=== PATIENT | male | born 1985 | race African-American/Black ===

== ENCOUNTER 2016-08-03 21:50 | Emergency (ER) | payer OTHER ==
[~2016-08-03] VITALS: Ht 193 cm; Wt 81.7 kg
[2016-08-03 23:45] VITALS: BP 110/70
== END 2016-08-03 23:49 | disposition home or self-care (01) ==
LOC: ER 21:50
DX: H61.23 Impacted cerumen, bilateral (principal)

== ENCOUNTER 2016-12-14 15:15 | Emergency (ER) | payer OTHER ==
[~2016-12-14] VITALS: Ht 193 cm; Wt 81.7 kg
[2016-12-14 15:16] VITALS: BP 114/67
[2016-12-14] MEDS ORDERED: NORCO 5-325 TA1 EACH PO (15:38)
[2016-12-14] MEDS ORDERED: NAPROSYN500 MG PO (15:38)
== END 2016-12-14 16:37 | disposition home or self-care (01) ==
LOC: ER 15:15
DX: S16.1XXA Strain of muscle, fascia and tendon at neck level, initial encounter (principal); S39.012A Strain of muscle, fascia and tendon of lower back, initial encounter; V89.2XXA Person injured in unspecified motor-vehicle accident, traffic, initial encounter; Y93.I9 Activity, other involving external motion; Y92.89 Other specified places as the place of occurrence of the external cause; Y99.8 Other external cause status

== ENCOUNTER 2016-12-19 15:36 | Emergency (ER) | payer OTHER ==
[~2016-12-19] VITALS: Ht 190.5 cm; Wt 81.7 kg
[~2016-12-19 15:36] MED LIST: NAPROSYN500 MG PO; NORCO 5-325 TA1 EACH PO
[2016-12-19] MEDS ORDERED: CYCLOBENZAPRINE5 MG PO (17:25)
[2016-12-19] MEDS ORDERED: MOBIC7.5 MG PO (17:25)
[2016-12-19] MEDS ORDERED: PREDNISONE 20 M20 MG PO (17:25)
[2016-12-19 17:57] VITALS: BP 123/75
== END 2016-12-19 17:57 | disposition home or self-care (01) ==
LOC: ER 15:36
DX: M54.5 Low back pain (principal); V89.2XXA Person injured in unspecified motor-vehicle accident, traffic, initial encounter; Y93.I9 Activity, other involving external motion; Y92.89 Other specified places as the place of occurrence of the external cause; Y99.8 Other external cause status

== ENCOUNTER 2018-08-03 08:08 | Emergency (ER) | payer BC ==
[~2018-08-03] VITALS: Ht 190.5 cm; Wt 83.9 kg
[2018-08-03 08:08] VITALS: BP 128/59
[~2018-08-03 08:08] MED LIST changes: +CYCLOBENZAPRINE5 MG PO; +MOBIC7.5 MG PO; +PREDNISONE 20 M20 MG PO
[2018-08-03 08:21] LABS: URINE BILIRUBIN NEGATIVE (Negative); URINE BLOOD TRACE (Negative); URINE COLOR YELLOW; URINE GLUCOSE-RANDOM* NEGATIVE (Negative); URINE KETONES NEGATIVE (Negative); URINE NITRITE-REFLEX NEGATIVE (Negative); URINE PROTEIN (DIPSTICK) NEGATIVE (Negative); URINE SPECIFIC GRAVITY 1.015 (1.005-1.035)
[2018-08-03 08:22] LABS: URINE CLARITY SLIGHTLY CLOUDY; URINE LEUKOCYTES-REFLEX 3+ (Negative)
[2018-08-03 08:53] LABS: CASTS None Seen /LPF (None Seen); CRYSTALS None Seen /LPF (None Seen); SQUAMOUS 0-3 Few /LPF (0-3); URINE RBC 0-2 Rare /HPF (0-2); URINE WBC-REFLEX >25 Many /HPF (0-5)
== END 2018-08-03 09:03 | disposition home or self-care (01) ==
LOC: ER 08:08
PROVIDERS: Emergency Medicine
DX: Z20.2 Contact with and (suspected) exposure to infections with a predominantly sexual mode of transmission (principal); N34.2 Other urethritis

== ENCOUNTER 2019-05-06 08:06 | Emergency (ER) | payer BC ==
[~2019-05-06] VITALS: Ht 190.5 cm; Wt 86.2 kg
[2019-05-06 08:07] VITALS: BP 137/84
[2019-05-06] MEDS ORDERED: NAPROSYN500 MG PO (09:08)
[2019-05-06] MEDS ORDERED: NORFLEX100 MG PO (09:08)
== END 2019-05-06 09:15 | disposition home or self-care (01) ==
LOC: ER 08:06
DX: S29.011A Strain of muscle and tendon of front wall of thorax, initial encounter (principal); R05 Cough; R09.3 Abnormal sputum; F17.210 Nicotine dependence, cigarettes, uncomplicated; X50.1XXA Overexertion from prolonged static or awkward postures, initial encounter; Y93.67 Activity, basketball; Y92.39 Other specified sports and athletic area as the place of occurrence of the external cause; Y99.8 Other external cause status

== ENCOUNTER 2019-08-24 19:07 | Emergency (ER) | payer BC ==
[~2019-08-24] VITALS: Ht 193 cm; Wt 83.9 kg
[~2019-08-24 19:07] MED LIST changes: +NORFLEX100 MG PO
[2019-08-24] MEDS ORDERED: ERYTHROMYCIN E3.5 G3 OPHTHALMIC (19:49)
[2019-08-24] MEDS ORDERED: NORCO 5-325 TA1 EAC1 PO (19:49)
[2019-08-24 20:19] VITALS: BP 117/71
== END 2019-08-24 20:20 | disposition home or self-care (01) ==
LOC: ER 19:07
DX: H20.9 Unspecified iridocyclitis (principal); F17.210 Nicotine dependence, cigarettes, uncomplicated

== ENCOUNTER 2021-03-13 18:14 | Emergency (ER) | payer BC ==
[~2021-03-13] VITALS: Ht 193 cm; Wt 90.7 kg
[~2021-03-13 18:14] MED LIST changes: +ERYTHROMYCIN E3.5 G3 OPHTHALMIC; +NORCO 5-325 TA1 EAC1 PO
[2021-03-13 18:15] VITALS: BP 131/74
== END 2021-03-13 18:46 | disposition home or self-care (01) ==
LOC: ER 18:14
PROVIDERS: Emergency Medicine
DX: U07.1 COVID-19 (principal); F12.90 Cannabis use, unspecified, uncomplicated; Z90.89 Acquired absence of other organs; Z79.899 Other long term (current) drug therapy